=== PATIENT | female | born 1990 | race Caucasian/White ===

== ENCOUNTER 2016-08-14 19:27 | Emergency (ER) ==
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
[2016-08-14] MEDS ORDERED: ULTRAM PO ONE (21:44)
[2016-08-14 22:04] VITALS: BP 114/70
--- NOTE | 2016-08-15 08:51 | Diag Imaging Result Document ---
PROCEDURE NAME: FOOT COMPLETE RIGHT - 08/14/2016 RIGHT FOOT, THREE VIEWS: FINDINGS: There are several fracture lines through the distal portion of the proximal phalanx of the third toe. The fracture extends into the proximal interphalangeal joint. There is mild compaction and angulation. There appears to be a small amount of callus formation. No other acute fracture or dislocation. IMPRESSION: Fracture to the proximal third toe which may be subacute. [facility]
--- NOTE | 2016-08-15 10:57 | Diag Imaging Result Document ---
PROCEDURE NAME: COCCYX/SACRUM - 08/14/2016 SACRUM AND COCCYX, 4 VIEWS: FINDINGS: There is no fracture identified. There is no subluxation seen. There are questionable L5 pars interarticularis defects on the lateral view, but evaluation is limited in this regard. IMPRESSION: No evidence of fracture or subluxation. Questionable L5 pars interarticularis defects noted. If any further imaging evaluation is desired, CT scan or MRI could be considered.
== END 2016-08-14 22:03 | disposition home or self-care (01) ==
LOC: P.ED 19:27
DX: S92.511A Displaced fracture of proximal phalanx of right lesser toe(s), initial encounter for closed fracture (principal); M79.674 Pain in right toe(s); M53.3 Sacrococcygeal disorders, not elsewhere classified; R26.2 Difficulty in walking, not elsewhere classified; E66.9 Obesity, unspecified; F17.210 Nicotine dependence, cigarettes, uncomplicated; Z71.6 Tobacco abuse counseling; Y04.0XXA Assault by unarmed brawl or fight, initial encounter; W22.8XXA Striking against or struck by other objects, initial encounter
CPT/HCPCS: 72220; 99283

== ENCOUNTER 2016-08-30 17:54 | Emergency (ER) ==
[2016-08-30 18:14] VITALS: BP 134/54
[2016-08-30] MEDS ORDERED: NORCO-10 PO ONE (18:30)
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
--- NOTE | 2016-08-31 08:19 | Diag Imaging Result Document ---
PROCEDURE NAME: FOOT COMPLETE RIGHT - 08/30/2016 RIGHT FOOT THREE VIEWS: FINDINGS: There are several fracture lines through the distal portion of the proximal phalanx of the third toe. Fracture extends into the proximal interphalangeal joint. There is at least one fragment which is displaced 1 mm to 2 mm. There is only minimal callous formation. No change compared to 08/14/2016. No other acute fracture or dislocation. IMPRESSION: Subacute fracture to the third toe with incomplete healing.
== END 2016-08-30 20:22 | disposition home or self-care (01) ==
LOC: P.ED 17:54
DX: H66.91 Otitis media, unspecified, right ear (principal); S92.511G Displaced fracture of proximal phalanx of right lesser toe(s), subsequent encounter for fracture with delayed healing; R51 Headache; R07.9 Chest pain, unspecified; M79.671 Pain in right foot; R10.2 Pelvic and perineal pain; M25.552 Pain in left hip; M25.551 Pain in right hip; F17.210 Nicotine dependence, cigarettes, uncomplicated
CPT/HCPCS: 81025; 99283